=== PATIENT | female | born 1995 | race Caucasian/White ===

== ENCOUNTER 2016-12-08 02:32 | Emergency (ER) | payer SELFPAY ==
[2016-12-08] MEDS ORDERED: OXYCODONE-ACETAMINOPHEN 5-325 MG TABLET PO ONE (07:42)
[2016-12-08] MEDS ORDERED: CLINDAMYCIN 600 MG/D5W RTU 50 ML IV ONE (07:42)
--- NOTE | 2016-12-08 07:42 | ER Document Report ---
ED Skin Rash/Insect Bite/Abscs - General Mode of Arrival: Ambulatory Information source: Patient TRAVEL OUTSIDE OF THE [place] IN LAST 30 DAYS: No - HPI Patient complains to provider of: Skin rash/lesion, Tender/swollen area Onset: Other - 2 weeks ago - General Chief Complaint: Abscess Stated Complaint: WOUND ON ARM Notes: 21 year old female presents to the ED complaining of an abscess to the left upper extremity that started 2 weeks ago as a small pimple. Patient reports that this morning prior to being seen the abscess was open and draining. Patient reports fever and nausea, but denies any vomiting or diarrhea. Patient does not have a primary care provider. (ELIOT SMYTH) - Related Data Allergies/Adverse Reactions: Penicillins Allergy (Verified 12/08/16 05:58) Past Medical History - General Information source: Patient - Social History Smoking Status: Unknown if Ever Smoked Family History: Reviewed & Not Pertinent Patient has suicidal ideation: No Patient has homicidal ideation: No Endocrine Medical History: Denies: Hx Diabetes Mellitus Type 2 Renal/ Medical History: Denies: Hx Peritoneal Dialysis Past Surgical History: Reports: Hx Oral Surgery - [place] teeth Review of Systems - Review of Systems Constitutional: See HPI, Fever EENT: No symptoms reported Cardiovascular: No symptoms reported Respiratory: No symptoms reported Gastrointestinal: See HPI, Nausea. denies: Diarrhea, Vomiting Genitourinary: No symptoms reported Female Genitourinary: No symptoms reported Musculoskeletal: No symptoms reported Skin: No symptoms reported Hematologic/Lymphatic: No symptoms reported Neurological/Psychological: No symptoms reported -: Yes All other systems reviewed and negative Physical Exam - General General appearance: Alert In distress: None - HEENT Head: Normocephalic, Atraumatic Eyes: Normal Extraocular movements intact: Yes Pupils: PERRL - Respiratory Respiratory status: No respiratory distress Breath sounds: Normal - Cardiovascular Rhythm: Regular Heart sounds: Normal auscultation - Abdominal Inspection: Normal Distension: No distension Tenderness: Nontender - Back Back: Normal - Extremities General upper extremity: Normal ROM. No: Normal inspection - see skin exam below General lower extremity: Normal inspection, Normal ROM - Neurological Neuro grossly intact: Yes Cognition: Normal Orientation: AAOx4 [place] Coma Scale Eye Opening: Spontaneous [place] Coma Scale Verbal: Oriented [place] Coma Scale Motor: Obeys Commands Vamsi Coma Scale Total: 15 Speech: Normal - Psychological Associated symptoms: Normal affect, Normal mood - Skin Skin Temperature: Warm Skin Moisture: Dry Skin Color: Normal Skin irregularity: Abscess Location of irregularity: Extremities - LUE Irregularity with: Other - Large fluctuant abscess to the LUE with surrounding erythema. No sign of IV drug abuse, necrosis, or crepitus. - Vital signs Vitals: Temp Pulse Resp BP Pulse Ox 98.5 F 95 18 111/77 98 12/08/16 03:44 12/08/16 03:44 12/08/16 03:44 12/08/16 03:44 12/08/16 03:44 Procedures - Incision and Drainage Left Upper Arm Time completed: 11:20 Type: Complex Anesthetic type: 1% Lidocaine Blade size: 16 I&D procedure: Chlorprep applied, Iodoform packing placed Incision Method: Incision made by scalpel Amount/type of drainage: Copious amount of pus drained into iodoform packing Discharge - Discharge Clinical Impression: acute large left upper actually abscess Condition: Stable Disposition: HOME, SELF-CARE Instructions: Abscess ([facility]) Additional Instructions: Abscess You have an abscess (boil). This a pus-forming infection, usually due to staph. Some boils may be left to drain on their own, but most require lancing. From the time the tender lump first appears, it may be three or four days before the abscess is ready to ramos. Local heat and rest help at this stage of treatment. An antibiotic may prevent spread of the infection. Once the abscess is opened, packing may be placed into it. This is done so pus is not sealed inside by premature closure of the cavity. The packing will be removed at your follow-up visit or you may be advised to remove it yourself at home. Sometimes this packing must be replaced a few times during healing. The wound will heal with surprisingly little scar. Depending on the size and location of an abscess, healing can take one to four weeks. You may shower and wash the area around the incision site two or three times a day. Antibiotics may be prescribed, but are usually not necessary after an abscess has been drained. If you develop fever, chilling, worsening pain, or increasing swelling in the area, call the doctor or return immediately. Follow-up for wound recheck and reevaluation at the urgent care or this emergency department in 2 days and call for an opponent primary care physician follow up for 5 days return for increasing worsening or new symptoms Prescriptions: Clindamycin HCl [Cleocin 300 mg Capsule] 300 mg PO BID #14 capsule Oxycodone HCl/Acetaminophen [Percocet 5-325 mg Tablet] 1 - 2 tab PO Q4H PRN #15 tablet PRN Reason: Scribe Attestation: 12/08/16 11:16 I personally performed the services described in the documentation reviewed the documentation recorded by my scribe in my presence and it accurately and completely records my words and actions (COURTNEY TOURE) Scribe Documentation - Scribe Written by Scribe:: Kilo Fiore, 12/08/2016 [id number] acting as scribe for :: Merlin
[2016-12-08] MEDS ORDERED: HYDROMORPHONE HCL INJ/PF 2 MG/ML AMPULE IV ONE (09:42)
[2016-12-08 11:33] VITALS: BP 109/68
== END 2016-12-08 11:32 | disposition home or self-care (01) ==
LOC: ER 02:32
PROC: 0H9CXZZ Drainage of Left Upper Arm Skin, External Approach (ICD-10-PCS; principal; 2016-12-08)
DX: L02.414 Cutaneous abscess of left upper limb (principal)
CPT/HCPCS: 99283; 96375; 96365; 87070; 87205; 87077; 87186; 10060; J1170